=== PATIENT | female | born 1985 | race Caucasian/White ===

== ENCOUNTER 2018-08-02 08:09 | Emergency (ER) | payer SELFPAY ==
[~2018-08-02] VITALS: Ht 162.6 cm; Wt 65.3 kg
--- NOTE | 2018-08-02 08:33 | NUR ---
ED Nurse Note: pt walked in to ED due to vaginal spotting since yesterday aw backache. pt is 5 weeks . per pt, she does not need pad. whenever she wipe, she noticed the blood. AAO x4. respirations even and non-labored noted. skin warm to touch. no open wound noted.
--- NOTE | 2018-08-02 08:48 | Emergency Room Report ---
History of Present Illness General Chief Complaint: Complications Source: Patient Present Illness HPI Patient presents with spotting and also lower back pain. Spotting started yesterday. The lower back pain started earlier today. She rates the pain 5/10 and aching. She denies any dysuria, fevers. She's had some morning cystitis but no vomiting. Her last period was June 29. She is certain her blood type is B positive. No fevers, chills, chest pain, palpitations, nausea, vomiting, diarrhea, dysuria , abdominal pain, shortness of breath, depression, visual changes, headache. She has a bump in her scalp. Allergies: Coded Allergies: No Known Allergies (Unverified , 08/02/18) Patient History Past Medical History: see triage record Social History Narrative raising children - recently moved from [place] Last Menstrual Period: 06/29/18 Now: Yes : 3 Para: 2 Reviewed Nursing Documentation: PMH: Agreed; PSxH: Agreed Nursing Documentation-PMH Past Medical History: No Stated History Review of Systems All Other Systems: negative except mentioned in HPI Physical Exam Vital Signs Date Time Temp Pulse Resp B/P (MAP) Pulse Ox O2 Delivery O2 Flow Rate FiO2 08/02/18 08:20 98.4 69 18 108/75 96 Room Air Sp02 EP Interpretation: reviewed, normal General Appearance: well appearing, no apparent distress, GCS 15 Head: normocephalic Eyes: bilateral eye normal inspection, bilateral eye PERRL ENT: moist mucus membranes Neck: supple Respiratory: lungs clear, normal breath sounds Cardiovascular #1: regular rate, rhythm Cardiovascular #2: 2+ radial (R) Gastrointestinal: normal inspection, normal bowel sounds, non tender, no mass, non-distended Genitourinary: no CVA tenderness, deferred - for ultrasound Musculoskeletal: back normal, gait/station normal, normal range of motion Neurologic: alert, oriented x3, grossly normal Psychiatric: mood/affect normal Skin: normal inspection, warm/dry, other - tiny skin nodule r occipital area Medical Decision Making Diagnostic Impression: Primary Impression: Threatened miscarriage in early ER Course Patient presents with spotting and back pain and believe she is 5 weeks . Differential includes ectopic, UTI, pyelonephritis, threatened miscarriage, early amongst others. Evaluation will be with labs including quant and ultrasound. Patient will be given Tylenol. U/S - no gestational sac identified Labs unremarkable. Quant = 5973 Patient eloped after ultrasound. Attempt to contact - number not in service. Message left with contact - @ 10:15. Patient returned after walking home and having lunch. She had refused Tylenol but was feeling better. Discussed results and advised to follow up with Ob. She said she had none and recently moved to area. Advised to f/u at nearby clinics. Given lab results. Told to return if increased pain or bleeding. Patient stable for outpatient observation and treatment. Laboratory Tests Test 08/02/18 09:06 White Blood Count 4.9 K/UL (4.8-10.8) Red Blood Count 4.60 M/UL (4.20-5.40) Hemoglobin 12.5 G/DL (12.0-16.0) Hematocrit 38.5 % (37.0-47.0) Mean Corpuscular Volume 84 FL (80-99) Mean Corpuscular Hemoglobin 27.1 PG (27.0-31.0) Mean Corpuscular Hemoglobin Concent 32.4 G/DL (32.0-36.0) Red Cell Distribution Width 13.2 % (11.6-14.8) Platelet Count 267 K/UL (150-450) Mean Platelet Volume 9.4 FL (6.5-10.1) Neutrophils (%) (Auto) 60.6 % (45.0-75.0) Lymphocytes (%) (Auto) 32.8 % (20.0-45.0) Monocytes (%) (Auto) 5.4 % (1.0-10.0) Eosinophils (%) (Auto) 0.5 % (0.0-3.0) Basophils (%) (Auto) 0.7 % (0.0-2.0) Prothrombin Time 11.0 SEC (9.30-11.50) Prothrombin Time INR 1.0 (0.9-1.1) PTT 27 SEC (23-33) Urine Color Pale yellow Urine Appearance Slightly cloudy Urine pH 6 (4.5-8.0) Urine Specific [place] 1.015 (1.005-1.035) Urine Protein Negative (NEGATIVE) Urine Glucose (UA) Negative (NEGATIVE) Urine Ketones Negative (NEGATIVE) Urine Blood 2+ (NEGATIVE) H Urine Nitrite Negative (NEGATIVE) Urine Bilirubin Negative (NEGATIVE) Urine Urobilinogen Normal MG/DL (0.0-1.0) Urine Leukocyte Esterase 1+ (NEGATIVE) H Urine RBC 2-4 /HPF (0 - 2) H Urine WBC 2-4 /HPF (0 - 2) Urine Squamous Epithelial Cells Moderate /LPF (NONE/OCC) H Urine Bacteria Few /HPF (NONE) Sodium Level 137 MMOL/L (136-145) Potassium Level 3.5 MMOL/L (3.5-5.1) Chloride Level 103 MMOL/L (98-107) Carbon Dioxide Level 26 MMOL/L (21-32) Anion Gap 8 mmol/L (5-15) Blood Urea Nitrogen 15 mg/dL (7-18) Creatinine 0.8 MG/DL (0.55-1.30) Estimate Glomerular Filtration Rate > 60 mL/min (>60) Glucose Level 82 MG/DL (74-106) Calcium Level 9.0 MG/DL (8.5-10.1) Total Bilirubin 0.5 MG/DL (0.2-1.0) Aspartate Amino Transferase (AST) 17 U/L (15-37) Alanine Aminotransferase (ALT) 31 U/L (12-78) Alkaline Phosphatase 64 U/L (46-116) Total Protein 7.9 G/DL (6.4-8.2) Albumin 3.6 G/DL (3.4-5.0) Globulin 4.3 g/dL Albumin/Globulin Ratio 0.8 (1.0-2.7) L Human Chorionic Gonadotropin, Quant 5973 mIU/mL (1-6) H CT/MRI/US Diagnostic Results CT/MRI/US Diagnostic Results : Imaging Test Ordered: pelvic u/s Impression Impression: No definite intrauterine gestational sac demonstrated. Differential considerations include very early , spontaneous , ectopic . Recommend correlation with serial beta hCGs and follow-up sonography is indicated Incidental finding cervical nabothian cyst Possible right paraovarian varicosities; correlate with any clinical findings suggestive of pelvic congestion syndrome Status: improved Disposition: HOME, SELF-CARE Condition: Improved Scripts Vit #91/Fe Fum/Fa/Dha ( + DHA COMBO PACK) 1 Each Combo..pkg 1 EACH PO DAILY, #30 PACK Prov: Adelfo Hernandez MD 08/02/18 Acetaminophen (Tylenol) 325 Mg Tablet 650 MG ORAL Q6H PRN for Prn Pain/Headache/Temp > 101, #20 TAB 0 Refills Prov: Adelfo Hernandez MD 08/02/18 Adelfo Hernandez MD Aug 02, 2018 08:48
[2018-08-02] MEDS ORDERED: TYLENOL325 MG ORAL (08:50)
[2018-08-02 09:23] LABS: ANION GAP 8 mmol/L (5-15); BASOPHILS % (AUTO) 0.7 % (0.0-2.0); BLOOD UREA NITROGEN 15 mg/dL (7-18); CARBON DIOXIDE 26 MMOL/L (21-32); CHLORIDE 103 MMOL/L (98-107); CREATININE 0.8 MG/DL (0.55-1.30); EOSINOPHILS % (AUTO) 0.5 % (0.0-3.0); HEMATOCRIT 38.5 % (37.0-47.0); HEMOGLOBIN 12.5 G/DL (12.0-16.0); LYMPHOCYTES % (AUTO) 32.8 % (20.0-45.0); MEAN CORPUSCULAR VOLUME 84 FL (80-99); MONOCYTES % (AUTO) 5.4 % (1.0-10.0); NEUTROPHILS % (AUTO) 60.6 % (45.0-75.0); PLATELET COUNT 267 K/UL (150-450); POTASSIUM 3.5 MMOL/L (3.5-5.1); RED CELL DISTRIBUTION WIDTH 13.2 % (11.6-14.8); SODIUM 137 MMOL/L (136-145); WHITE BLOOD COUNT 4.9 K/UL (4.8-10.8)
[2018-08-02 09:29] LABS: ALANINE AMINOTRANSFERASE 31 U/L (12-78); ALBUMIN 3.6 G/DL (3.4-5.0); ALBUMIN/GLOBULIN RATIO 0.8 (1.0-2.7); ALKALINE PHOSPHATASE 64 U/L (46-116); ASPARTATE AMINO TRANSFERASE 17 U/L (15-37); BILIRUBIN,TOTAL 0.5 MG/DL (0.2-1.0)
[2018-08-02 09:43] LABS: APPEARANCE,URINE SLIGHTLY CLOUDY; BILIRUBIN, URINE NEGATIVE (NEGATIVE); COLOR,URINE PALE YELLOW; GLUCOSE, URINE (UA) NEGATIVE (NEGATIVE); KETONES,URINE NEGATIVE (NEGATIVE); LEUKOCYTE ESTERASE ,URINE 1+ (NEGATIVE); NITRITE,URINE NEGATIVE (NEGATIVE); PH,URINE 6 (4.5-8.0); PROTEIN,URINE NEGATIVE (NEGATIVE); UROBILINOGEN,URINE NORMAL MG/DL (0.0-1.0)
--- NOTE | 2018-08-02 10:10 | NUR ---
ED Nurse Note: pt not found in exam room after US done. Dr. Hernandez notified. [employer] called due to IV access.
[2018-08-02 10:20] VITALS: BP 108/75
--- NOTE | 2018-08-02 10:20 | NUR ---
ELOPEMENT: pt eloped the facility.
--- NOTE | 2018-08-02 10:45 | Diagnostic Imaging Report ---
Indication: Pelvic pain, positive test, beta hCG 5973 Technique: Transabdominal and transvaginal images. Doppler interrogation of the ovaries. Comparison: none Findings: Uterus measures 8.1 cm in length by 4.5 cm AP. The endometrium measures 13 mm thick. Tiny fluid collection without decidual reaction is seen in the upper endometrium, and linear areas of fluid are seen lower in the endometrium. No intrauterine gestational sac demonstrated. Incidental note is made of a cervical nabothian cyst. No myometrial abnormality demonstrated. No adnexal mass demonstrated. Normal size ovaries. These demonstrate normal flow on Doppler imaging. There is suggestion of right paraovarian varicosities. No free cul-de-sac fluid. Impression: No definite intrauterine gestational sac demonstrated. Differential considerations include very early , spontaneous , ectopic . Recommend correlation with serial beta hCGs and follow-up sonography is indicated Incidental finding cervical nabothian cyst Possible right paraovarian varicosities; correlate with any clinical findings suggestive of pelvic congestion syndrome Findings discussed by phone with Dr. Hernandez in the emergency room at the time of interpretation
[2018-08-02] MEDS ORDERED: PRENATAL + DHA1 EAC1 PO (12:12)
--- NOTE | 2018-08-02 12:20 | NUR ---
ED Nurse Note: pt came back. per pt, she went out to move a car and had a lunch. IV removed. Dr. Hernandez explained the result at the bed side and discharge instruction provide.
== END 2018-08-02 10:20 | disposition left against medical advice (07) ==
LOC: EMR 08:40
DX: O20.0 Threatened abortion (principal); Z3A.01 Less than 8 weeks gestation of pregnancy
CPT/HCPCS: 36415; 76801; 80053; 81003; 84702; 85025; 85610; 85730; 99284

== ENCOUNTER → 2018-08-02 | Emergency (ER) | payer SELFPAY ==
[~2018-08-02] MED LIST: PRENATAL + DHA1 EAC1 PO; TYLENOL325 MG ORAL
--- NOTE | 2018-08-02 12:50 | Emergency Room Report ---
History of Present Illness General Chief Complaint: To Be Triaged Source: Patient Present Illness HPI patient returned after being seen Chart made in error. See initial evaluation. Allergies: Coded Allergies: No Known Allergies (Unverified , 08/02/18) Patient History Reviewed Nursing Documentation: PMH: Agreed; PSxH: Agreed Medical Decision Making Diagnostic Impression: Primary Impression: Threatened miscarriage ER Course Please refer to initial chart. Patient left to have lunch and returned. Status: improved Disposition: HOME, SELF-CARE Condition: Improved Referrals: NOT CHOSEN IPA/,REFERRING (PCP) Adelfo Hernandez MD Aug 02, 2018 12:50
== END | disposition home or self-care (01) ==
LOC: EMR 12:40
DX: O20.0 Threatened abortion (principal); Z3A.00 Weeks of gestation of pregnancy not specified

== ENCOUNTER 2018-08-07 00:44 | Emergency (ER) | payer SELFPAY ==
[~2018-08-07] VITALS: Ht 162.6 cm; Wt 64.4 kg
[2018-08-07] MEDS ORDERED: NKM (01:00)
--- NOTE | 2018-08-07 01:06 | NUR ---
ED Nurse Note: pt walked in c/o vaginal bleeding, pt states she is 6 wks , she noticed bleeding since the morning and went through about 6-7 pads, pt reports low abd cramping pain and dizziness and back pain, G3 T2 L2. Pt AA&ox4, gcs=15, skin warm and dry, resp even and unlabored on RA, denies n/v/d at this time, will cont monitor.
--- NOTE | 2018-08-07 01:44 | Emergency Room Report ---
History of Present Illness General Chief Complaint: Complications Source: Patient Present Illness HPI Patient is a 33-year-old female recently seen after vaginal bleeding during . Patient is noted to be approximately 6 weeks . She reported having increased heavy amounts of bleeding. She states that she had not had any repeat laboratory testing done. She reports having worsening cramping and bleeding. She denies any localized pain. She reports having some tissue passed. Allergies: Coded Allergies: No Known Allergies (Unverified , 08/02/18) Patient History Last Menstrual Period: 06/29/2018 Now: Yes - 6 weeks : 3 Para: 2 Reviewed Nursing Documentation: PMH: Agreed; PSxH: Agreed Nursing Documentation-PMH Past Medical History: No Stated History Review of Systems All Other Systems: negative except mentioned in HPI Physical Exam Vital Signs Date Time Temp Pulse Resp B/P (MAP) Pulse Ox O2 Delivery O2 Flow Rate FiO2 08/07/18 00:57 98.4 76 16 113/71 99 Room Air Sp02 EP Interpretation: reviewed, normal General Appearance: normal inspection, well appearing, no apparent distress, alert, GCS 15 Head: atraumatic ENT: normal ENT inspection, hearing grossly normal, normal voice Neck: normal inspection, full range of motion, supple, no bony tend Respiratory: normal inspection, lungs clear, normal breath sounds, no respiratory distress, no retraction, no wheezing Cardiovascular #1: regular rate, rhythm, no edema Gastrointestinal: normal inspection, normal bowel sounds, non tender, soft, no guarding, no hernia Genitourinary: no CVA tenderness Musculoskeletal: normal inspection, back normal, normal range of motion Neurologic: normal inspection, alert, oriented x3, responsive, speech normal Psychiatric: normal inspection, judgement/insight normal, mood/affect normal Skin: normal inspection, normal color, no rash Medical Decision Making Diagnostic Impression: Primary Impression: Missed ER Course Patient is a 33-year-old female presented after increased lower abdominal cramping. Differential diagnosis include was not limited to ectopic , threatened , missed among others. Because of complexity of patient's case laboratory testing and imaging studies were ordered. Pelvic ultrasound showed no evidence of intrauterine without any adnexal masses noted. There is no free fluid. Patient had previous ultrasound which showed similar findings. Quantitative beta-hCG was noted to be previously greater than 5000 and currently was noted to be much lower. Patient was advised to follow-up with NET UI DEVELOPER for reevaluation and possible D&C. She is advised to return if she began having worsening pain, fever, persistent bleeding or other concerns Labs Test 08/07/18 01:46 White Blood Count 6.5 K/UL (4.8-10.8) Red Blood Count 4.15 M/UL (4.20-5.40) Hemoglobin 11.5 G/DL (12.0-16.0) Hematocrit 34.5 % (37.0-47.0) Mean Corpuscular Volume 83 FL (80-99) Mean Corpuscular Hemoglobin 27.6 PG (27.0-31.0) Mean Corpuscular Hemoglobin Concent 33.2 G/DL (32.0-36.0) Red Cell Distribution Width 12.9 % (11.6-14.8) Platelet Count 251 K/UL (150-450) Mean Platelet Volume 7.9 FL (6.5-10.1) Neutrophils (%) (Auto) 59.0 % (45.0-75.0) Lymphocytes (%) (Auto) 32.6 % (20.0-45.0) Monocytes (%) (Auto) 6.6 % (1.0-10.0) Eosinophils (%) (Auto) 1.1 % (0.0-3.0) Basophils (%) (Auto) 0.7 % (0.0-2.0) Prothrombin Time 11.4 SEC (9.30-11.50) Prothromb Time International Ratio 1.1 (0.9-1.1) Activated Partial Thromboplast Time 26 SEC (23-33) Urine Color Pale yellow Urine Appearance Slightly cloudy Urine pH 5 (4.5-8.0) Urine Specific [place] 1.020 (1.005-1.035) Urine Protein 2+ (NEGATIVE) Urine Glucose (UA) Negative (NEGATIVE) Urine Ketones Negative (NEGATIVE) Urine Blood 5+ (NEGATIVE) Urine Nitrite Negative (NEGATIVE) Urine Bilirubin Negative (NEGATIVE) Urine Urobilinogen Normal MG/DL (0.0-1.0) Urine Leukocyte Esterase 1+ (NEGATIVE) Urine RBC Tntc /HPF (0 - 2) Urine WBC 2-4 /HPF (0 - 2) Urine Squamous Epithelial Cells Moderate /LPF (NONE/OCC) Urine Bacteria Moderate /HPF (NONE) Sodium Level 139 MMOL/L (136-145) Potassium Level 3.4 MMOL/L (3.5-5.1) Chloride Level 104 MMOL/L (98-107) Carbon Dioxide Level 27 MMOL/L (21-32) Anion Gap 8 mmol/L (5-15) Blood Urea Nitrogen 14 mg/dL (7-18) Creatinine 0.8 MG/DL (0.55-1.30) Estimat Glomerular Filtration Rate > 60 mL/min (>60) Glucose Level 94 MG/DL (74-106) Calcium Level 9.2 MG/DL (8.5-10.1) Total Bilirubin 0.3 MG/DL (0.2-1.0) Aspartate Amino Transf (AST/SGOT) 15 U/L (15-37) Alanine Aminotransferase (ALT/SGPT) 25 U/L (12-78) Alkaline Phosphatase 56 U/L (46-116) Total Protein 7.0 G/DL (6.4-8.2) Albumin 3.3 G/DL (3.4-5.0) Globulin 3.7 g/dL Albumin/Globulin Ratio 0.9 (1.0-2.7) Lipase 134 U/L (73-393) Human Chorionic Gonadotropin, Quant 3073 mIU/mL (1-6) Last Vital Signs Date Time Temp Pulse Resp B/P (MAP) Pulse Ox O2 Delivery O2 Flow Rate FiO2 08/07/18 00:57 98.4 76 16 113/71 99 Room Air Status: improved Disposition: HOME, SELF-CARE Condition: Stable Lonny West MD Aug 07, 2018 01:44
[2018-08-07 02:11] LABS: BASOPHILS % (AUTO) 0.7 % (0.0-2.0); EOSINOPHILS % (AUTO) 1.1 % (0.0-3.0); HEMATOCRIT 34.5 % (37.0-47.0); HEMOGLOBIN 11.5 G/DL (12.0-16.0); LYMPHOCYTES % (AUTO) 32.6 % (20.0-45.0); MEAN CORPUSCULAR VOLUME 83 FL (80-99); MONOCYTES % (AUTO) 6.6 % (1.0-10.0); PLATELET COUNT 251 K/UL (150-450); RED BLOOD COUNT 4.15 M/UL (4.20-5.40); RED CELL DISTRIBUTION WIDTH 12.9 % (11.6-14.8); WHITE BLOOD COUNT 6.5 K/UL (4.8-10.8)
--- NOTE | 2018-08-07 02:15 | NUR ---
ED Nurse Note: pt off to ultrasound
[2018-08-07 02:23] LABS: INR 1.1 (0.9-1.1)
[2018-08-07 02:26] LABS: BILIRUBIN, URINE NEGATIVE (NEGATIVE); COLOR,URINE PALE YELLOW; GLUCOSE, URINE (UA) NEGATIVE (NEGATIVE); KETONES,URINE NEGATIVE (NEGATIVE); LEUKOCYTE ESTERASE ,URINE 1+ (NEGATIVE); NITRITE,URINE NEGATIVE (NEGATIVE); PH,URINE 5 (4.5-8.0); PROTEIN,URINE 2+ (NEGATIVE); UROBILINOGEN,URINE NORMAL MG/DL (0.0-1.0)
[2018-08-07 02:27] LABS: APPEARANCE,URINE SLIGHTLY CLOUDY
[2018-08-07 02:37] LABS: ANION GAP 8 mmol/L (5-15); BLOOD UREA NITROGEN 14 mg/dL (7-18); CALCIUM 9.2 MG/DL (8.5-10.1); CARBON DIOXIDE 27 MMOL/L (21-32); CHLORIDE 104 MMOL/L (98-107); CREATININE 0.8 MG/DL (0.55-1.30); POTASSIUM 3.4 MMOL/L (3.5-5.1); SODIUM 139 MMOL/L (136-145)
[2018-08-07 02:42] LABS: ALANINE AMINOTRANSFERASE 25 U/L (12-78); ALBUMIN 3.3 G/DL (3.4-5.0); ALBUMIN/GLOBULIN RATIO 0.9 (1.0-2.7); ALKALINE PHOSPHATASE 56 U/L (46-116); ASPARTATE AMINO TRANSFERASE 15 U/L (15-37); BILIRUBIN,TOTAL 0.3 MG/DL (0.2-1.0)
--- NOTE | 2018-08-07 03:15 | NUR ---
ED Nurse Note: pt cleared to be d/c per ERMD, pt discharge and aftercare instruction provided, pt advised to follow up with salad bar clerk or return to ed if changes in condition, pt education done via discussion and handout, pt verbalized understanding and agrees with plan, vss, ambulatory w/steady gait, left w/ all belongings.
[2018-08-07 03:16] VITALS: BP 118/76
--- NOTE | 2018-08-07 13:27 | Diagnostic Imaging Report ---
Indication: Reason For Exam: PAIN Technique: Transabdominal and transvaginal images. Doppler interrogation of the ovaries. Comparison: 08/02/2018 Findings: Uterus measures 9.1 x 5.4 x 4.4 cm. Tiny fluid collection without decidual reaction is again seen in the endometrium. No definite gestational sac with identifiable yolk sac or pole identified. Overall findings are similar compared to the prior exam. The left ovary measures 3.2 x 3.5 x 1.9 cm. The left ovary measures 3 x 1.8 cm. No adnexal mass lesion is identified. Color and Doppler flow is documented in the bilateral ovaries. A nabothian cysts noted in the cervix. IMPRESSION: Overall no significant interval change compared to exam 5 days prior. No definitive intrauterine gestational sac. Again, differential considerations include very early , failed early /spontaneous (with retained products) or an unidentified ectopic . Correlation with trended beta-HCG and follow-up ultrasound is recommended. CONTAINER FINISHER follow-up recommended.
== END 2018-08-07 03:18 | disposition home or self-care (01) ==
LOC: EMR 01:30
DX: O02.1 Missed abortion (principal)
CPT/HCPCS: 36415; 76801; 80053; 81003; 83690; 84702; 85025; 85610; 85730; 87086; 96360; 99284